=== PATIENT | female | born 1990 | race Caucasian/White ===

== ENCOUNTER 2022-07-07 18:46 | Inpatient (IN) ==
[2022-07-07] MEDS ORDERED: SODIUM CHLORIDE 0.9% 1000ML 2,000 ML IV ONE (19:18)
[2022-07-07] MEDS ORDERED: KETOROLAC TROMETHAMINE 15 MG/ML VIAL IV ONE (19:19)
[2022-07-07] MEDS ORDERED: MoRPHine SULFATE 4 MG/ML 1 ML CARP\\VIAL IV STA ×2 (19:19→22:29)
--- NOTE | 2022-07-07 19:23 | Emergency Department Note ---
Impression & Plan Renal colic, Abdominal pain, Ovarian cyst, Hydronephrosis ED Provider Note NAME: JASWANT GILMORE AGE: 31 SEX: F : 1990 ARRIVES VIA: Walk-In INFORMANT: Patient ED PROVIDER(S): Riley Rodriguez DO CHIEF COMPLAINT: abdominal pain HPI: Patient is a 31-year-old female who presents ER for right lower quadrant abdominal pain. She had a child about 5 years ago. Since that she has been having chronic pain in her belly. This pain in the right lower quadrant has been present since Monday. She was seen at outside facility and had imaging and was diagnosed with an ovarian cyst. She notes that the symptoms have been waxing and waning. They worsened again today. She was also found to have a 9 mm stone in her right kidney. Denies any headache or change in vision. No chest pain or shortness of breath. She does admit to some urgency and frequency but no pain. Last menstrual period was mid May. PAST MEDICAL HISTORY:See Below PAST SURGICAL HISTORY:See Below FAMILY HISTORY:See Below SOCIAL HISTORY:See Below HOME MEDICATIONS:See Below ALLERGIES:See Below VITALS:See Below PHYSICAL EXAMINATION: GENERAL: Sitting up in bed, alert, moderate distress holding right lower quadrant EYE EXAM: EOM's grossly intact. OROPHARYNX: mucous membranes are moist NECK: supple, no nuchal rigidity, no adenopathy, non-tender LUNGS: Clear to auscultation. Normal chest wall mechanics HEART: no murmurs, S1 normal and S2 normal ABDOMEN: abdomen soft, non-tender, normo-active bowel sounds, no masses, no r ebound or guarding. BACK: Back is symmetrical on inspection and there is no deformity, no midline t enderness, no CVA tenderness. SKIN: no rashes and no bruising UPPER EXTREMITIES: upper extremities are grossly normal. LOWER EXTREMITIES: No pitting edema. NEURO EXAM: Normal sensorium, cranial nerves II-XII grossly intact, normal speech, no gross weakness of arms, no gross weakness of legs. No drift. Finger to nose intact. Gross sensation intact. MEDICAL DECISION MAKING: Patient is a 29-year-old female who presents ER for above-stated complaint. IV was established blood work was obtained. Labs show no significant leukocytosis or anemia. BMP along LFTs bilirubin and lipase is unremarkable. UA was clean. COVID-negative. She was given IV fluids, multiple doses of narcotics and antiemetics. She still had persistent vomiting. CT confirmed a 7 mm distal ureteral stone. Discussed with Aravind from urology and Dr. Rand from the hospital service for further observation and monitoring. OBSERVATION: The patient was placed in observation status at 7PM. Abdominal pain with renal colic. During the time in observation, the patient was frequently reassessed and received CT which shows renal stone. On Final reassessment the patient patient was given fluids, recurrent dose of pain medications and antiemetics and the patient will be admitted at this time. A total observation time of 5 hours at 12 AM Triage Nursing notes reviewed. Limited review of prior medical records performed Vital Signs: reviewed and remarkable for no significant abnormalities Differential diagnosis: Differential diagnoses includes but is not limited to gastritis, peptic ulcer disease, GERD, gallbladder disease, pancreatitis, small bowel obstruction, appendicitis, diverticulitis, hernia, urinary tract infection, torsion, /ectopic (if female), perforation, trauma, infectious. ER treatment provided: See below Diagnostics interpreted by me include EKG and cardiac monitoring as listed below: -Cardiac Monitoring: An order was placed for continuous cardiac monitoring. The monitor shows a rate of 70 with sinus rhythm. -ECG: none -Laboratory studies:Interpreted by me as stated above in MDM and shown below. Imaging studies: Xrays: As interpreted by me:none CTs show: CT shows no bowel obstruction per my read Consultation(s): As described in MDM Procedures:none Critical Care: None Past Med/Surg History Medical History (Updated 07/08/22 @ 00:02 by Cesar Greenfield PA-C) Cardiac murmur Lipoma REMOVAL LEG-BENIGN MVP (mitral valve prolapse) NO PREMED WITH DENTAL-HAD EKG/ECHO [facility]-PT WAS TOLD "NO NEED FOR CONCERN' Nausea and vomiting after administration of anesthetic agent AND GROGGY Surgical History H/O eye surgery PRK BILAT History of section History of tooth extraction WISDOM TEETH Hx of breast implants, bilateral Family History Grandmother (Maternal) Family history of diabetes mellitus Family hx of colon cancer Social History Smoking Status: Never smoker Second Hand Exposure: No; Do You Dip or Chew Tobacco: No; Hx Alcohol Use: Yes Alcohol type: beer and wine Hx Substance Use: No Preferred Language: Tajik Communication Ability: Effective Collection Systems Administrator Required: No Beliefs That Will Affect Care: None Current Living Situation: Spouse and Family Feels Safe at Home: Yes Assistive Devices: None Allergies Allergies Allergy/AdvReac Type Severity Reaction Status Date / Time No Known Allergies Allergy Verified 07/07/22 19:35 Home Meds Home Medications Medication Instructions Recorded Confirmed acetaminophen 500 mg tablet 1,000 mg PO DIRECTED PRN Pain 12/04/18 07/07/22 (Tylenol Extra Strength) doxycycline hyclate 50 mg capsule 50 mg PO DAILY 07/01/22 07/07/22 tretinoin 0.05 % topical gel 1 applic topical WK 07/01/22 07/07/22 ibuprofen 800 mg tablet 800 mg PO TID PRN Pain 07/07/22 07/07/22 Previous Rx's Medication Instructions Recorded ondansetron HCl 4 mg tablet 4 mg PO Q8H PRN nausea and 07/01/22 vomiting #20 tabs ondansetron 4 mg disintegrating 4 mg PO Q8H PRN nausea and 07/07/22 tablet vomiting 5 days #15 tabs oxycodone 5 mg tablet 5 mg PO Q6H PRN pain #14 tabs 07/07/22 tamsulosin 0.4 mg capsule (Flomax) 0.4 mg PO DAILY #10 caps 07/07/22 Results & Data (ED) Vital Signs Vital Signs - 24 hr 07/07/22 19:03 07/07/22 18:46 07/07/22 19:29 Temperature 36.9 C Temperature Source Temporal Artery Scan Pulse Rate 63 63 Pulse Rate from SpO2 Sensor Pulse Rhythm Respiratory Rate 18 Respiratory Effort / Characteristics Non-Labored Spontaneous Non-Labored Spontaneous Respiratory Depth Normal Blood Pressure 125/89 Blood Pressure Mean 101 Blood Pressure Position Sitting Pulse Oximetry 100 Oxygen Delivery Method Room Air Sepsis Recent Fever Within 48 Hours No Sepsis New/Unexplained Change in Mental Status No Sepsis Action Taken by Nursing No Action Required 07/07/22 19:07 07/07/22 19:27 07/07/22 19:30 Temperature Temperature Source Pulse Rate 64 63 64 Pulse Rate from SpO2 Sensor Pulse Rhythm Regular Respiratory Rate 17 16 24 Respiratory Effort / Characteristics Respiratory Depth Blood Pressure Blood Pressure Mean Blood Pressure Position Pulse Oximetry 100 Oxygen Delivery Method Room Air Sepsis Recent Fever Within 48 Hours Sepsis New/Unexplained Change in Mental Status Sepsis Action Taken by Nursing 07/07/22 19:50 07/07/22 19:52 07/07/22 20:00 Temperature Temperature Source Pulse Rate 65 67 65 Pulse Rate from SpO2 Sensor 65 Pulse Rhythm Respiratory Rate 18 19 16 Respiratory Effort / Characteristics Respiratory Depth Blood Pressure 120/86 120/86 Blood Pressure Mean 97 97 Blood Pressure Position Pulse Oximetry 99 Oxygen Delivery Method Sepsis Recent Fever Within 48 Hours Sepsis New/Unexplained Change in Mental Status Sepsis Action Taken by Nursing 07/07/22 20:10 07/07/22 20:20 07/07/22 20:30 Temperature Temperature Source Pulse Rate 69 63 66 Pulse Rate from SpO2 Sensor 70 63 65 Pulse Rhythm Respiratory Rate 16 14 17 Respiratory Effort / Characteristics Respiratory Depth Blood Pressure Blood Pressure Mean Blood Pressure Position Pulse Oximetry 96 99 98 Oxygen Delivery Method Sepsis Recent Fever Within 48 Hours Sepsis New/Unexplained Change in Mental Status Sepsis Action Taken by Nursing 07/07/22 20:40 07/07/22 20:50 07/07/22 21:15 Temperature Temperature Source Pulse Rate 65 69 78 Pulse Rate from SpO2 Sensor 66 72 Pulse Rhythm Respiratory Rate 17 16 14 Respiratory Effort / Characteristics Respiratory Depth Blood Pressure Blood Pressure Mean Blood Pressure Position Pulse Oximetry 98 98 Oxygen Delivery Method Sepsis Recent Fever Within 48 Hours Sepsis New/Unexplained Change in Mental Status Sepsis Action Taken by Nursing 07/07/22 21:20 07/07/22 21:27 07/07/22 21:30 Temperature Temperature Source Pulse Rate 66 75 67 Pulse Rate from SpO2 Sensor 65 75 67 Pulse Rhythm Respiratory Rate 14 16 15 Respiratory Effort / Characteristics Respiratory Depth Blood Pressure 130/81 104/62 Blood Pressure Mean 97 76 Blood Pressure Position Pulse Oximetry 96 95 99 Oxygen Delivery Method Sepsis Recent Fever Within 48 Hours Sepsis New/Unexplained Change in Mental Status Sepsis Action Taken by Nursing 07/07/22 21:40 07/07/22 21:50 07/07/22 22:38 Temperature Temperature Source Pulse Rate 66 94 H Pulse Rate from SpO2 Sensor 65 83 Pulse Rhythm Respiratory Rate 13 17 Respiratory Effort / Characteristics Respiratory Depth Blood Pressure Blood Pressure Mean Blood Pressure Position Pulse Oximetry 98 96 Oxygen Delivery Method Sepsis Recent Fever Within 48 Hours Sepsis New/Unexplained Change in Mental Status Sepsis Action Taken by Nursing 07/07/22 22:40 07/07/22 22:50 07/07/22 22:51 Temperature Temperature Source Pulse Rate 74 Pulse Rate from SpO2 Sensor 68 76 77 Pulse Rhythm Respiratory Rate 14 Respiratory Effort / Characteristics Respiratory Depth Blood Pressure 115/78 Blood Pressure Mean 90 Blood Pressure Position Pulse Oximetry 95 96 96 Oxygen Delivery Method Sepsis Recent Fever Within 48 Hours Sepsis New/Unexplained Change in Mental Status Sepsis Action Taken by Nursing 07/07/22 23:00 07/07/22 23:10 07/07/22 23:20 Temperature Temperature Source Pulse Rate 77 73 65 Pulse Rate from SpO2 Sensor 74 73 63 Pulse Rhythm Respiratory Rate 14 18 12 Respiratory Effort / Characteristics Respiratory Depth Blood Pressure 123/83 Blood Pressure Mean 96 Blood Pressure Position Pulse Oximetry 99 97 94 Oxygen Delivery Method Sepsis Recent Fever Within 48 Hours Sepsis New/Unexplained Change in Mental Status Sepsis Action Taken by Nursing 07/07/22 23:30 07/07/22 23:40 07/07/22 23:50 Temperature Temperature Source Pulse Rate 68 62 63 Pulse Rate from SpO2 Sensor 68 62 62 Pulse Rhythm Respiratory Rate 15 16 13 Respiratory Effort / Characteristics Respiratory Depth Blood Pressure 117/81 Blood Pressure Mean 93 Blood Pressure Position Pulse Oximetry 96 95 96 Oxygen Delivery Method Sepsis Recent Fever Within 48 Hours Sepsis New/Unexplained Change in Mental Status Sepsis Action Taken by Nursing 07/08/22 00:00 07/08/22 00:10 07/08/22 00:20 Temperature Temperature Source Pulse Rate 76 90 61 Pulse Rate from SpO2 Sensor 67 86 63 Pulse Rhythm Respiratory Rate 15 15 16 Respiratory Effort / Characteristics Respiratory Depth Blood Pressure 111/73 Blood Pressure Mean 85 Blood Pressure Position Pulse Oximetry 96 99 97 Oxygen Delivery Method Sepsis Recent Fever Within 48 Hours Sepsis New/Unexplained Change in Mental Status Sepsis Action Taken by Nursing Laboratory Data 07/07/22 19:25 07/07/22 19:25 Lab Results 07/07/22 07/07/22 07/07/22 Range/Units 19:07 19:25 19:25 WBC 9.19 (4.8-10.8) K/ul RBC 4.37 (4.20-5.40) M/uL Hgb 14.0 (12.0-16.0) g/dl Hct 38.0 (37.0-47.0) % MCV 87.0 (80.0-100.0) fL MCH 32.0 (25.0-34.0) pg MCHC 36.8 H (32.0-36.0) g/dL RDW Std Deviation 39.8 (36.4-46.3) fL RDW Coeff of Jenae 12.4 (11.5-14.5) % Plt Count 313 (130-400) K/uL MPV 10.0 (9.4-12.4) fL Immature Gran % (Auto) 0.3 % Neut % (Auto) 67.4 % Lymph % (Auto) 21.8 % Hand % (Auto) 9.0 % Eos % (Auto) 1.3 % Baso % (Auto) 0.2 % Neut # (Auto) 6.19 (1.40-6.50) K/uL Lymph # (Auto) 2.00 (1.2-3.4) K/uL Hand # (Auto) 0.83 H (0.11-0.59) K/uL Eos # (Auto) 0.12 (0-0.50) K/uL Baso # (Auto) 0.02 (0-0.2) K/uL Immature Gran # (Auto) 0.03 (0.01-0.20) K/uL Sodium 138 (136-145) mmol/L Potassium 3.7 (3.5-5.1) mmol/L Chloride 106 (98-107) mmol/L Carbon Dioxide 25 (21-32) mmol/L Anion Gap 7 (3-11) BUN 18 (6-23) mg/dl Creatinine 1.36 H (0.6-1.2) mg/dl Est Cr Clr Drug Dosing 61.3 ml/min Est GFR ( Amer) 59.5 ml/min Est GFR (Non-Af Amer) 51.4 ml/min BUN/Creatinine Ratio 13.2 (10-20) Glucose 87 (70-99(Fasting)) mg/dl Calcium 9.4 (8.6-10.3) mg/dl Total Bilirubin 0.5 (0.2-1.0) mg/dl AST 13 (13-39) U/L ALT 10 (7-52) U/L Alkaline Phosphatase 73 (34-104) U/L Total Protein 7.2 (6.0-8.3) gm/dl Albumin 4.4 (3.4-5.0) gm/dl Globulin 2.8 (2.5-4.0) gm/dl Albumin/Globulin Ratio 1.6 (0.9-2) Lipase 14 (11-82) U/L Urine Color Urine Appearance (Clear) Urine pH (4.5-7.5) Ur Specific [place] (1.000-1.030) Urine Protein (Negative) Urine Glucose (UA) (Negative) Urine Ketones (Negative) Urine Blood (Negative) Urine Nitrite (Negative) Urine Bilirubin (Negative) Urine Urobilinogen (Negative) Ur Leukocyte Esterase (Negative) Urine WBC (Auto) (0-5) /hpf Urine RBC (Auto) (0-4) /hpf U Hyaline Cast (Auto) (0-5) /lpf U Epithel Cells (Auto) (0-5) /lpf Urine Bacteria (Auto) (Negative) POC Ur Test NEG (NEG) SARS-CoV-2, RNA, NAAT (NEGATIVE) 07/07/22 07/07/22 07/07/22 Range/Units 19:25 22:00 22:38 WBC (4.8-10.8) K/ul RBC (4.20-5.40) M/uL Hgb (12.0-16.0) g/dl Hct (37.0-47.0) % MCV (80.0-100.0) fL MCH (25.0-34.0) pg MCHC (32.0-36.0) g/dL RDW Std Deviation (36.4-46.3) fL RDW Coeff of Jenae (11.5-14.5) % Plt Count (130-400) K/uL MPV (9.4-12.4) fL Immature Gran % (Auto) % Neut % (Auto) % Lymph % (Auto) % Hand % (Auto) % Eos % (Auto) % Baso % (Auto) % Neut # (Auto) (1.40-6.50) K/uL Lymph # (Auto) (1.2-3.4) K/uL Hand # (Auto) (0.11-0.59) K/uL Eos # (Auto) (0-0.50) K/uL Baso # (Auto) (0-0.2) K/uL Immature Gran # (Auto) (0.01-0.20) K/uL Sodium (136-145) mmol/L Potassium (3.5-5.1) mmol/L Chloride (98-107) mmol/L Carbon Dioxide (21-32) mmol/L Anion Gap (3-11) BUN (6-23) mg/dl Creatinine (0.6-1.2) mg/dl Est Cr Clr Drug Dosing ml/min Est GFR ( Amer) ml/min Est GFR (Non-Af Amer) ml/min BUN/Creatinine Ratio (10-20) Glucose (70-99(Fasting)) mg/dl Calcium (8.6-10.3) mg/dl Total Bilirubin (0.2-1.0) mg/dl AST (13-39) U/L ALT (7-52) U/L Alkaline Phosphatase (34-104) U/L Total Protein (6.0-8.3) gm/dl Albumin (3.4-5.0) gm/dl Globulin (2.5-4.0) gm/dl Albumin/Globulin Ratio (0.9-2) Lipase (11-82) U/L Urine Color Yellow Yellow Urine Appearance Turbid A Clear (Clear) Urine pH 8.5 H 7.0 (4.5-7.5) Ur Specific [place] 1.019 1.040 H (1.000-1.030) Urine Protein Negative Negative (Negative) Urine Glucose (UA) Negative Negative (Negative) Urine Ketones Negative 1+ H (Negative) Urine Blood 2+ H Trace H (Negative) Urine Nitrite Negative Negative (Negative) Urine Bilirubin Negative Negative (Negative) Urine Urobilinogen Negative Negative (Negative) Ur Leukocyte Esterase Trace H Negative (Negative) Urine WBC (Auto) 1-5 1-5 (0-5) /hpf Urine RBC (Auto) >30 H 0-4 (0-4) /hpf U Hyaline Cast (Auto) 0 0 (0-5) /lpf U Epithel Cells (Auto) >30 H 0-5 (0-5) /lpf Urine Bacteria (Auto) 1+ H Negative (Negative) POC Ur Test (NEG) SARS-CoV-2, RNA, NAAT NEGATIVE (NEGATIVE) Administered Medications Discontinued Medications Sodium Chloride (Nss 1000ml) 2,000 mls @ 999 mls/hr IV .Q2H1M ONE Stop: 07/07/22 21:18 Last Infusion: 07/07/22 21:41 Dose: 0 mls/hr Documented By: Admin: 07/07/22 19:42 Dose: 999 mls/hr Documented By: ISH Ioversol (Optiray 320 100ml) 81 ml IV ONCE ONE Stop: 07/07/22 21:07 Last Admin: 07/07/22 21:07 Dose: 81 ml Documented By: MIRLANDE Ketorolac Tromethamine (Ketorolac Tromethamine 15 Mg/Ml Vial) 15 mg IV NOW ONE Stop: 07/07/22 19:20 Last Admin: 07/07/22 19:42 Dose: 15 mg Documented By: ISH Metoclopramide HCl (Metoclopramide Hcl Inj 5 Mg/Ml 2 Ml Vial) 10 mg IV NOW STA Stop: 07/07/22 21:18 Last Admin: 07/07/22 21:24 Dose: 10 mg Documented By: ISH Morphine Sulfate (Morphine Sulfate 4 Mg/Ml 1 Ml Carp\\Vial) 4 mg IV NOW STA Stop: 07/07/22 19:20 Last Admin: 07/07/22 19:48 Dose: 4 mg Documented By: ISH Morphine Sulfate (Morphine Sulfate 4 Mg/Ml 1 Ml Carp\\Vial) 4 mg IV NOW STA Stop: 07/07/22 22:30 Last Admin: 07/07/22 22:34 Dose: 4 mg Documented By: TIA Ondansetron HCl (Ondansetron Inj 2 Mg/Ml 2 Ml Vial) 4 mg IV NOW STA Stop: 07/07/22 19:46 Last Admin: 07/07/22 19:48 Dose: 4 mg Documented By: ISH Ondansetron HCl (Ondansetron Inj 2 Mg/Ml 2 Ml Vial) 4 mg IV NOW STA Stop: 07/07/22 22:31 Last Admin: 07/07/22 22:34 Dose: 4 mg Documented By: TIA Oxycodone HCl (Oxycodone Ir Home Pack) 1 each PO UD ONE Stop: 07/07/22 22:19 Last Admin: 07/07/22 22:49 Dose: Not Given Documented By: ISH Imaging Data Radiologist's Impression: Abdomen/Pelvis CT 07/07/22 19:19 Exam(s): CT ABDOMEN + PELVIS With Contrast IV Amt: 81 ml optiray 320 EXAM: CT Abdomen and Pelvis With Intravenous Contrast CLINICAL HISTORY: rlq abd pain. TECHNIQUE: Axial computed tomography images of the abdomen and pelvis with intravenous contrast. CTDI is 15.71 mGy and DLP is 782.57 mGy-cm. Automated exposure control was utilized for the study. A dose lowering technique was utilized adhering to the principles of ALARA. CONTRAST: Patient received 81 ml optiray 320 of IV contrast COMPARISON: CT abdomen and pelvis with contrast dated 05/20/2019 FINDINGS: Lung bases: Unremarkable. No mass. No consolidation. ABDOMEN: Liver: Unremarkable. No mass. Gallbladder and bile ducts: Unremarkable. No calcified stones. No ductal dilation. Pancreas: Unremarkable. No mass. No ductal dilation. Spleen: Unremarkable. No splenomegaly. Adrenals: Unremarkable. No mass. Kidneys and ureters: A 7.6 mm distal right ureteral stone is noted in the right UVJ with proximal mild to moderate right hydroureteronephrosis. There is minimal perinephric and periureteral fat stranding identified. The left kidney is unremarkable without obstructive nephrolithiasis or hydronephrosis. Right kidney demonstrates somewhat diminished relative enhancement compared to the left kidney. Stomach and bowel: Unremarkable. No obstruction. No mucosal thickening. PELVIS: Appendix: A normal caliber appendix is noted extending inferiorly from the cecum in the anterior pelvis. Bladder: Unremarkable. No mass. Reproductive: There are follicular changes in the right ovary/adnexa measuring 2.1 x 2.2 and 2.5 x 2.3 cm. The uterus is unremarkable. The left adnexa is unremarkable. ABDOMEN and PELVIS: Intraperitoneal space: Unremarkable. No free air. No significant fluid collection. Bones/joints: Posterior pedicle screws and laminar clips are noted at L5 level, stable from the previous examination. There is a grade 1 anterolisthesis of L5 on S1. No acute osseous abnormality. No dislocation. Soft tissues: Unremarkable. Vasculature: Unremarkable. No abdominal aortic aneurysm. Lymph nodes: Unremarkable. No enlarged lymph nodes. IMPRESSION: A 7.6 mm distal right ureteral stone is noted in the right UVJ with proximal mild to moderate right hydroureteronephrosis. There is minimal perinephric and periureteral fat stranding identified. Electronically signed by: Raul Plunkett MD 07/07/22 21:28 PM Discharge Plan Visit Data Chief Complaint: Abdominal Pain Stated Complaint: LOWER RIGHT ABDOMINAL PAIN, VOMITING ED Provider: Riley Rodriguez Discharge Problem: Renal colic, Abdominal pain, Ovarian cyst, Hydronephrosis Discharge Instructions Krames/Other Patient Handouts: ED Kidney Stone w/ Colic Activity Restrictions/Additional Instructions: Please follow up with your primary care doctor or if you are a student, [facility] with in the next 24 hours. You were found to have a kidney stone. This is a stone that was made in your kidneys and is currently in your ureter. Once it gets into your bladder you will no longer have any pain and will eventually urinate this out. Any worsening of your symptoms, please return to the ED immediately. This includes any fevers greater than 100.4, worsening pain, chest pain, shortness breath, persistent nausea, vomiting, unable to eat or drink, or any other concerning signs or symptoms from your standpoint. You were given medications during this visit that will inhibit your ability to drive, operate machinery and work. Please do NOT drive, operate machinery or work for the next 12hrs. You were also given a prescription for a narcotic. While taking this medication you should also not drive, operate machinery and or work. You were found to have a blood pressure greater than 120 systolic over 90 d iastolic. Due to the new Medicare guidelines, we are now recommending that you follow up with your primary care doctor in regards to this elevated blood pressure. Please follow up with urology and call them first thing when you leave here between the hours of 8am and 5pm to schedule an appointment. Please inform them that you were seen and evaluated in the ER and need follow-up for your kidney stone. Forms Stand Alone Forms: My [facility] Prescriptions Prescriptions: New tamsulosin [Flomax] 0.4 mg capsule 0.4 mg PO DAILY Qty: 10 0RF ondansetron 4 mg tablet,disintegrating 4 mg PO Q8H PRN (Reason: nausea and vomiting) 5 Days Qty: 15 0RF oxycodone 5 mg tablet 5 mg PO Q6H PRN (Reason: pain) Qty: 14 0RF No Action acetaminophen [Tylenol Extra Strength] 500 mg Tablet 1,000 mg PO DIRECTED PRN (Reason: Pain) doxycycline hyclate 50 mg capsule 50 mg PO DAILY Patient Comments: she took this morning but threw it back up. tretinoin 0.05 % gel 1 applic TOPICAL [facility] Rx Instructions: MONDAYS ondansetron HCl 4 mg tablet 4 mg PO Q8H PRN (Reason: nausea and vomiting) Qty: 20 0RF ibuprofen 800 mg tablet 800 mg PO TID PRN (Reason: Pain) Referrals Referrals: Delilah Snowden MD [Primary Care Provider] -
[2022-07-07] MEDS ORDERED: ONDANSETRON INJ 2 MG/ML 2 ML VIAL IV STA ×2 (19:45→22:30)
[2022-07-07 19:59] LABS: Basophils # (auto) 0.02 K/uL (0-0.2); Basophils % (auto) 0.2 %; Eosinophils # (auto) 0.12 K/uL (0-0.50); Eosinophils % (auto) 1.3 %; Immature Granulocytes # (auto) 0.03 K/uL (0.01-0.20); Immature Granulocytes % (auto) 0.3 %; Lymphocytes % (auto) 21.8 %; Mean Corpuscular Hgb Conc 36.8 g/dL (32.0-36.0); Monocytes # (auto) 0.83 K/uL (0.11-0.59); Neutrophils # (auto) 6.19 K/uL (1.40-6.50); Neutrophils % (auto) 67.4 %; Platelet Count 313 K/uL (130-400); RDW Coefficient of Variation 12.4 % (11.5-14.5); RDW Standard Deviation 39.8 fL (36.4-46.3); Red Blood Count 4.37 M/uL (4.20-5.40); White Blood Count 9.19 K/ul (4.8-10.8)
[2022-07-07 20:00] LABS: Appearance Urine Turbid (Clear); Bacteria Urine Automated 1+ (Negative); Bilirubin Urine Negative (Negative); Blood Urine 2+ (Negative); Cast Urine Automated 0 /lpf (0-5); Color Urine Yellow; Epithelial Cell Urine Auto >30 /lpf (0-5); Glucose Urine UA Negative (Negative); Ketones Urine Negative (Negative); Leukocyte Esterase Urine Trace (Negative); Nitrite Urine Negative (Negative); Protein Urine Negative (Negative); RBC Urine Automated >30 /hpf (0-4); Specific Gravity Urine 1.019 (1.000-1.030); Urobilinogen Urine Negative (Negative); pH Urine 8.5 (4.5-7.5)
[2022-07-07 20:06] LABS: Albumin Globulin Ratio 1.6 (0.9-2); Albumin Level 4.4 gm/dl (3.4-5.0); BUN Creatinine Ratio 13.2 (10-20); Bilirubin,Total 0.5 mg/dl (0.2-1.0); Calcium 9.4 mg/dl (8.6-10.3); Creatinine Clr Calc Pharmacy 61.3 ml/min; Est GFR (African American) 59.5 ml/min; Est GFR (Non-African American) 51.4 ml/min; Globulin 2.8 gm/dl (2.5-4.0); Potassium 3.7 mmol/L (3.5-5.1); Total Protein 7.2 gm/dl (6.0-8.3)
[2022-07-07] MEDS ORDERED: OPTIRAY 320 100ml IV ONE (21:06)
[2022-07-07] MEDS ORDERED: METOCLOPRAMIDE HCL INJ 5 MG/ML 2 ML VIAL IV STA (21:17)
--- NOTE | 2022-07-07 21:29 | CT Scan Report ---
Exam(s): CT ABDOMEN + PELVIS With Contrast IV Amt: 81 ml optiray 320 EXAM: CT Abdomen and Pelvis With Intravenous Contrast CLINICAL HISTORY: rlq abd pain. TECHNIQUE: Axial computed tomography images of the abdomen and pelvis with intravenous contrast. CTDI is 15.71 mGy and DLP is 782.57 mGy-cm. Automated exposure control was utilized for the study. A dose lowering technique was utilized adhering to the principles of ALARA. CONTRAST: Patient received 81 ml optiray 320 of IV contrast COMPARISON: CT abdomen and pelvis with contrast dated 05/20/2019 FINDINGS: Lung bases: Unremarkable. No mass. No consolidation. ABDOMEN: Liver: Unremarkable. No mass. Gallbladder and bile ducts: Unremarkable. No calcified stones. No ductal dilation. Pancreas: Unremarkable. No mass. No ductal dilation. Spleen: Unremarkable. No splenomegaly. Adrenals: Unremarkable. No mass. Kidneys and ureters: A 7.6 mm distal right ureteral stone is noted in the right UVJ with proximal mild to moderate right hydroureteronephrosis. There is minimal perinephric and periureteral fat stranding identified. The left kidney is unremarkable without obstructive nephrolithiasis or hydronephrosis. Right kidney demonstrates somewhat diminished relative enhancement compared to the left kidney. Stomach and bowel: Unremarkable. No obstruction. No mucosal thickening. PELVIS: Appendix: A normal caliber appendix is noted extending inferiorly from the cecum in the anterior pelvis. Bladder: Unremarkable. No mass. Reproductive: There are follicular changes in the right ovary/adnexa measuring 2.1 x 2.2 and 2.5 x 2.3 cm. The uterus is unremarkable. The left adnexa is unremarkable. ABDOMEN and PELVIS: Intraperitoneal space: Unremarkable. No free air. No significant fluid collection. Bones/joints: Posterior pedicle screws and laminar clips are noted at L5 level, stable from the previous examination. There is a grade 1 anterolisthesis of L5 on S1. No acute osseous abnormality. No dislocation. Soft tissues: Unremarkable. Vasculature: Unremarkable. No abdominal aortic aneurysm. Lymph nodes: Unremarkable. No enlarged lymph nodes. IMPRESSION: A 7.6 mm distal right ureteral stone is noted in the right UVJ with proximal mild to moderate right hydroureteronephrosis. There is minimal perinephric and periureteral fat stranding identified. Electronically signed by: Raul Plunkett MD 07/07/22 21:28 PM
[2022-07-07 22:14] LABS: Appearance Urine Clear (Clear); Bacteria Urine Automated Negative (Negative); Bilirubin Urine Negative (Negative); Blood Urine Trace (Negative); Cast Urine Automated 0 /lpf (0-5); Color Urine Yellow; Epithelial Cell Urine Auto 0-5 /lpf (0-5); Glucose Urine UA Negative (Negative); Ketones Urine 1+ (Negative); Leukocyte Esterase Urine Negative (Negative); Nitrite Urine Negative (Negative); Protein Urine Negative (Negative); RBC Urine Automated 0-4 /hpf (0-4); Urobilinogen Urine Negative (Negative)
[2022-07-07] MEDS ORDERED: oxyCODONE IR HOME PACK PO ONE (22:18)
[2022-07-07] MEDS ORDERED: oxyCODONE HCL IR 5 MG TAB (IMMEDIATE RELEASE) PO PRN (22:49)
--- NOTE | 2022-07-07 23:21 | Urology Consultation ---
Date of Consultation July 07, 2022 Assessment & Plan (1) Nephrolithiasis: I discussed with the treating emergency room physician the patient is being made on the hospitalist service. From a urologic standpoint we recommend the following: Provide analgesics Provide antiemetics Avoid nephrotoxic medications as the patient has had a slight increase in her creatinine (I suspect the elevation of her creatinine is at least in part due to poor oral intake and dehydration as she has been having nausea and vomiting with poor oral intake) Follow serial labs Recommend straining all urineif any kidney stones are passed they can be sent for proper analysis Recommend initiating Flomax for expulsive therapy. I have ordered the first dose of this medication to be given in the emergency department. Patient does not have signs of urinary tract infection on urinalysis. A urine culture has been sent. If bacterial growth is noted on her urine culture appropriate antibiotics can be initiated Implement n.p.o. status. The patient will be reevaluated in the morning of 07/08/2022 to determine if cystoscopy is required. At the present time the patient is noted to be normotensive without tachycardia or fever. She does not have leukocytosis. Her urinalysis not taken of infection so I do not feel an emergent urologic procedure is required at this time. Additional recommendations be forthcoming based on her clinical course as it unfolds Supervising Physician Co-Signing Physician Notes Discussed patient with ALENA. Agree with plan. Keep NPO, re-evaluate in the morning for possible stent placement. History of Present Illness Reason for Consultation: Nephrolithiasis History of Present Illness This is a 31-year-old female who presented to [facility] emergency department secondary to abdominal pain. Patient notes that she has been having issues with abdominal pain for approximately 1.5 weeks. Patient says that she was seen by one of her primary care team members and was sent to [facility] on 06/28/2022 as the patient was experiencing some right lower quadrant abdominal pain and they wanted to ensure patient was not suffering from appendicitis. While at [facility] the patient had a CT scan of the abdomen pelvisthe patient was able to pull up her electronic medical record and I reviewed the report of the study. This CT scan showed the patient had a 9 x 6 mm right-sided kidney stone with no hydronephrosis. Her appendix was noted to be normal on the study. In addition the patient has had outpatient laboratories where her creatinine was noted to be normal at 0.7. Patient notes that she did not have any outpatient follow-up arranged for the noted kidney stone. The patient presented to [facility] emergency department secondary to ongoing pain. Patient notes that she does have occasional right flank pain but the pain is primary located in the right lower quadrant of her abdomen. She has had associated nausea and vomiting but specifically denies any fevers or chills. Patient says that she is not experiencing any dysuria or hematuria. She denies any palliative or provocative factors to her pain. The patient does report that prior to her current presentation she has not had any known history of nephrolithiasis. The patient notes that her most recent solid oral intake was at approximately 3:00 PM on 07/07/2022. She does note that she has been drinking some water since arrival to the emergency department. The patient notes that she leads an active lifestyle and does not get chest pain or shortness of breath with her activities of daily living. Since arrival to the hospital the patient has had labs and imaging which I independently reviewed. A chest x-ray did not show any evidence of pneumonia. The patient did have a CT scan of the abdomen pelvis that showed she had a 7.6 mm distal right ureteral stone at the ureterovesical junction. The patient was noted to have moderate right hydroureteronephrosis and minimal perinephric and periureteral fat stranding. Her appendix was noted to be normal on the study. Labs include a CBC her white blood cell count, hemoglobin, hematocrit, and platelet count were normal. Chemistry profile showed sodium, potassium, and BUN were normal. The patient's creatinine was noted to be 1.3. (Review of records show the patient did have a normal creatinine on July 01 of this year. In addition the patient was seen approximately 1.5 weeks ago at [facility] as noted above where her creatinine was noted to be normal). There is no elevation of the patient's LFTs or lipase. Urinalysis was not indicative of infection. A urine test was negative. A COVID test was negative At the time of my interview the patient was resting comfortably in bed and she was in no distress Allergies Allergy/AdvReac Type Severity Reaction Status Date / Time No Known Allergies Allergy Verified 07/07/22 19:35 Home Medications Medication Instructions Recorded Confirmed Type acetaminophen 500 mg tablet 1,000 mg PO DIRECTED PRN Pain 12/04/18 07/07/22 History (Tylenol Extra Strength) doxycycline hyclate 50 mg capsule 50 mg PO DAILY 07/01/22 07/07/22 History tretinoin 0.05 % topical gel 1 applic topical WK 07/01/22 07/07/22 History ibuprofen 800 mg tablet 800 mg PO TID PRN Pain 07/07/22 07/07/22 History ondansetron 4 mg disintegrating 4 mg PO Q8H PRN nausea and 07/07/22 Rx tablet vomiting 5 days #15 tabs oxycodone 5 mg tablet 5 mg PO Q6H PRN pain #14 tabs 07/07/22 Rx tamsulosin 0.4 mg capsule (Flomax) 0.4 mg PO DAILY #10 caps 07/07/22 Rx Patient History Medical History Cardiac murmur Lipoma REMOVAL LEG-BENIGN MVP (mitral valve prolapse) NO PREMED WITH DENTAL-HAD EKG/ECHO [facility]-PT WAS TOLD "NO NEED FOR CONCERN' Nausea and vomiting after administration of anesthetic agent AND GROGGY Surgical History H/O eye surgery PRK BILAT History of section History of tooth extraction WISDOM TEETH Hx of breast implants, bilateral Family History Grandmother (Maternal) Family history of diabetes mellitus Family hx of colon cancer Social History Smoking Status: Never smoker Second Hand Exposure: No; Do You Dip or Chew Tobacco: No; Hx Alcohol Use: Yes Alcohol type: other Hx Substance Use: No Preferred Language: Gibraltarian Communication Ability: Effective Printer Assistant Required: No Beliefs That Will Affect Care: None Current Living Situation: Spouse Feels Safe at Home: Yes Assistive Devices: None Review of Systems Constitutional: no fever and no chills Ear, Nose, Mouth, Throat: no hearing loss Respiratory: no cough and no dyspnea Cardiovascular: no chest pain Gastrointestinal: + abdominal pain, + nausea and + vomiting Genitourinary: as per Subjective / HPI Musculoskeletal: + back pain (Minor right-sided flank pain) Integumentary: no rash Neurologic: no localized weakness Physical Exam Constitutional: WD/WN, vitals as above Eyes: no conjunctival abnormality ENMT: Ears: no hearing impairment and no external ear abnormality Mouth: no oropharynx abnormality Neck: trachea midline Respiratory: normal respiratory effort, lungs clear to auscultation Cardiovascular: Rate/Rhythm: regular rate and regular rhythm Vessels: dorsalis pedis pulses present and radial pulses present Gastrointestinal (Abdomen): Abdomen is soft, nonrigid, nondistended. Bowel sounds are present. There is no rebound tenderness or guarding. Pain was exhibited with palpation of the right lower quadrant. Musculoskeletal: No calf tenderness Skin: no rashes Neurologic: moves all extremities Psychiatric: A+Ox3, euthymic affect Genitourinary: + CVA tenderness (Noted on right side with percussion, no CVA tenderness on left) Results & Data Vital Signs (Past 12 Hours) Vital Signs Temp Pulse Resp BP Pulse Ox O2 Del Method 07/07/22 21:40 66 13 98 07/07/22 21:30 67 15 104/62 99 07/07/22 21:27 75 16 130/81 95 07/07/22 21:20 66 14 96 07/07/22 21:15 78 14 07/07/22 20:50 69 16 98 07/07/22 20:40 65 17 98 07/07/22 20:30 66 17 98 07/07/22 20:20 63 14 99 07/07/22 20:10 69 16 96 07/07/22 20:00 65 16 99 07/07/22 19:52 67 19 120/86 07/07/22 19:50 65 18 120/86 07/07/22 19:30 64 24 07/07/22 19:27 63 16 07/07/22 19:07 64 17 100 Room Air 07/07/22 19:29 63 07/07/22 19:03 36.9 C 63 18 125/89 100 Room Air PG Care Time/CCT Total # of Minutes Spent Total Time Spent with Patient: Total time spent is greater than 50% in coordination of care (as documented) at patient's floor/unit and/or counseling patient: Coding Level of Care Code 48206 IN/OBS CONSULT LVL 5,80M Diagnoses Nephrolithiasis N20.0
[2022-07-08] MEDS ORDERED: TAMSULOSIN HCL 0.4 MG CAP PO ONE (00:05)
[2022-07-08] MEDS ORDERED: PROMETHAZINE HCL 12.5 MG in SODIUM CHLORIDE 0.9% 50 ML IV PRN ×2 (00:21→15:22)
[2022-07-08] MEDS ORDERED: D5W AND LACTATED RINGERS 1,000 ML IV ONE (00:35)
[2022-07-08] MEDS ORDERED: PROMETHAZINE 12.5 MG/50.5 ML BAG IV PRN (00:38)
--- NOTE | 2022-07-08 01:45 | History & Physical Report ---
Date of Service July 08, 2022 Assessment & Plan (1) ARF (acute renal failure): Plan: Secondary to obstructive uropathy/urolithiasis No sepsis for now hx mitral valve prolapse gestational DM cervical dysplasia GMF Analgesia Monitor creatinine response to IVF Urology consult Re: Obstructive uropathy (Patient already seen at the ER by provider who recommends Flomax and n.p.o. status in anticipation of procedural intervention in a.m.) DVT prophylaxis. SCDs Full code Text document was generated using [employer] voice recognition software. It may contain grammatical or spelling errors. Kindly contact undersigned for clarification of any documentation item in question. History of Present Illness Chief Complaint: Worsening right lower quadrant pain Primary Care Provider: Delilah Snowden MD History obtained from patient and records. Medical history significant for mitral valve prolapse, gestational DM, cervical dysplasia. Patient seen at [facility] 10 days ago right lower quadrant pain. Normal appendix and nonobstructing right renal calculus noted on imaging. Right ovarian cyst noted. Pain attributed to right ovarian cyst. Subsequent improved with outpatient oxycodone as needed prescription. Last week, patient seen at the [facility] ER for achy right lower quadrant pain somewhat different from ovarian cyst pain. Pain crossing over. Patient denies hematuria, fever, chills. No chest pain, no SOB. Normal uterus endometrium, few right ovarian cysts with dominant simple cyst measuring 3.2 cm on pelvic ultrasound. Patient abdominal pain attributed to ovarian cyst. Patient returned to ER last night for worsening RLQ pain nausea, vomiting. No chest pain, no SOB No hematuria, fever, chills. 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 Allergies Allergy/AdvReac Type Severity Reaction Status Date / Time No Known Allergies Allergy Verified 07/07/22 19:35 Home Medications Medication Instructions Recorded Confirmed Type acetaminophen 500 mg tablet 1,000 mg PO DIRECTED PRN Pain 12/04/18 07/07/22 History (Tylenol Extra Strength) doxycycline hyclate 50 mg capsule 50 mg PO DAILY 07/01/22 07/07/22 History ondansetron HCl 4 mg tablet 4 mg PO Q8H PRN nausea and 07/01/22 07/07/22 Rx vomiting #20 tabs tretinoin 0.05 % topical gel 1 applic topical WK 07/01/22 07/07/22 History ibuprofen 800 mg tablet 800 mg PO TID PRN Pain 07/07/22 07/07/22 History ondansetron 4 mg disintegrating 4 mg PO Q8H PRN nausea and 07/07/22 Rx tablet vomiting 5 days #15 tabs oxycodone 5 mg tablet 5 mg PO Q6H PRN pain #14 tabs 07/07/22 Rx tamsulosin 0.4 mg capsule (Flomax) 0.4 mg PO DAILY #10 caps 07/07/22 Rx Past Med/Surg History Medical History (Updated 07/08/22 @ 08:41 by Mika Daugherty MD) Cardiac murmur Lipoma REMOVAL LEG-BENIGN MVP (mitral valve prolapse) NO PREMED WITH DENTAL-HAD EKG/ECHO [facility]-PT WAS TOLD "NO NEED FOR CONCERN' Nausea and vomiting after administration of anesthetic agent AND GROGGY Surgical History H/O eye surgery PRK BILAT History of section History of tooth extraction WISDOM TEETH Hx of breast implants, bilateral Family History Grandmother (Maternal) Family history of diabetes mellitus Family hx of colon cancer Social History Smoking Status: Never smoker Second Hand Exposure: No; Do You Dip or Chew Tobacco: No; Hx Alcohol Use: Yes Alcohol type: other Hx Substance Use: No Preferred Language: Vietnamese Communication Ability: Effective 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 Beliefs That Will Affect Care: None Current Living Situation: Spouse Feels Safe at Home: Yes Safety Concerns: Feels Safe At This Time Assistive Devices: None Review of Systems Review of Systems: As per HPI, all other systems reviewed and negative Physical Exam Physical Exam: GENERAL: Comfortable, no respiratory distress SKIN: Normal color, warm HEENT: [place] palpebral conjunctivae, no ptosis, dry buccal mucosa NECK : Supple, no tenderness CHEST : CTA, no tenderness HEART : RRR, no obvious murmurs ABDOMEN: Some distention, right lower quadrant tenderness EXTREMITIES : No LE swelling/tenderness, no other conspicuous deformities noted NEUROLOGIC : Coherent, no facial asymmetry, no other gross focality Results & Data Results & Data Vital Signs (Past 12 Hours) Vital Signs Temp Pulse Resp BP Pulse Ox O2 Del Method 07/08/22 00:20 61 16 97 07/08/22 00:10 90 15 99 07/08/22 00:00 76 15 111/73 96 07/07/22 23:50 63 13 96 07/07/22 23:40 62 16 95 07/07/22 23:30 68 15 117/81 96 07/07/22 23:20 65 12 94 07/07/22 23:10 73 18 97 07/07/22 23:00 77 14 123/83 99 07/07/22 22:51 74 14 115/78 96 07/07/22 22:50 96 07/07/22 22:40 95 07/07/22 22:38 96 07/07/22 21:50 94 H 17 07/07/22 21:40 66 13 98 07/07/22 21:30 67 15 104/62 99 07/07/22 21:27 75 16 130/81 95 07/07/22 21:20 66 14 96 07/07/22 21:15 78 14 07/07/22 20:50 69 16 98 07/07/22 20:40 65 17 98 07/07/22 20:30 66 17 98 07/07/22 20:20 63 14 99 07/07/22 20:10 69 16 96 07/07/22 20:00 65 16 99 07/07/22 19:52 67 19 120/86 07/07/22 19:50 65 18 120/86 07/07/22 19:30 64 24 07/07/22 19:27 63 16 07/07/22 19:07 64 17 100 Room Air 07/07/22 19:29 63 07/07/22 19:03 36.9 C 63 18 125/89 100 Room Air Laboratory Results Laboratory Results WBC 9.19 K/ul (4.8-10.8) 07/07/22 19:25 RBC 4.37 M/uL (4.20-5.40) 07/07/22 19:25 Hgb 14.0 g/dl (12.0-16.0) 07/07/22 19: Hct 38.0 % (37.0-47.0) 07/07/22: MCV 87.0 fL (80.0-100.0) 07/07/22 19: MCH 32.0 pg (25.0-34.0) 07/07/22: MCHC 36.8 g/dL (32.0-36.0) H 07/07/22: RDW Std Deviation 39.8 fL (36.4-46.3) 07/07/22: RDW Coeff of Jenae 12.4 % (11.5-14.5) 07/07/22: Plt Count 313 K/uL (130-400) 07/07/22: MPV 10.0 fL (9.4-12.4) 07/07/22: Immature Gran % (Auto) 0.3 % 07/07/22: Neut % (Auto) 67.4 % 07/07/22: Lymph % (Auto) 21.8 % 07/07/22:25 [place] % (Auto) 9.0 % 07/07/22 19: Eos % (Auto) 1.3 % 07/07/22: Baso % (Auto) 0.2 % 07/07/22: Neut # (Auto) 6.19 K/uL (1.40-6.50) 07/07/22: Lymph # (Auto) 2.00 K/uL (1.2-3.4) 07/07/22: Wetzel # (Auto) 0.83 K/uL (0.11-0.59) H 07/07/22: Eos # (Auto) 0.12 K/uL (0-0.50) 07/07/22: Baso # (Auto) 0.02 K/uL (0-0.2) 07/07/22: Immature Gran # (Auto) 0.03 K/uL (0.01-0.20) 07/07/22 19: Sodium 138 mmol/L (136-145) 07/07/22 19:25 Potassium 3.7 mmol/L (3.5-5.1) 07/07/22 19:25 Chloride 106 mmol/L (98-107) 07/07/22 19:25 Carbon Dioxide 25 mmol/L (21-32) 07/07/22 19:25 Anion Gap 7 (3-11) 07/07/22 19:25 BUN 18 mg/dl (6-23) 07/07/22 19:25 Creatinine 1.36 mg/dl (0.6-1.2) H 07/07/22 19:25 Est Cr Clr Drug Dosing 61.3 ml/min 07/07/22 19:25 Est GFR ( Amer) 59.5 ml/min 07/07/22 19:25 Est GFR (Non-Af Amer) 51.4 ml/min 07/07/22 19:25 BUN/Creatinine Ratio 13.2 (10-20) 07/07/22 19:25 Glucose 87 mg/dl (70-99(Fasting)) 07/07/22 19:25 Calcium 9.4 mg/dl (8.6-10.3) 07/07/22 19:25 Total Bilirubin 0.5 mg/dl (0.2-1.0) 07/07/22 19:25 AST 13 U/L (13-39) 07/07/22 19:25 ALT 10 U/L (7-52) 07/07/22 19:25 Alkaline Phosphatase 73 U/L (34-104) 07/07/22 19:25 Total Protein 7.2 gm/dl (6.0-8.3) 07/07/22 19:25 Albumin 4.4 gm/dl (3.4-5.0) 07/07/22 19:25 Globulin 2.8 gm/dl (2.5-4.0) 07/07/22 19:25 Albumin/Globulin Ratio 1.6 (0.9-2) 07/07/22 19:25 Lipase 14 U/L (11-82) 07/07/22 19:25 Urine Color Yellow 07/07/22 22:00 Urine Appearance Clear (Clear) 07/07/22 22:00 Urine pH 7.0 (4.5-7.5) 07/07/22 22:00 Ur Specific [place] 1.040 (1.000-1.030) H 07/07/22 22:00 Urine Protein Negative (Negative) 07/07/22 22:00 Urine Glucose (UA) Negative (Negative) 07/07/22 22:00 Urine Ketones 1+ (Negative) H 07/07/22 22:00 Urine Blood Trace (Negative) H 07/07/22 22:00 Urine Nitrite Negative (Negative) 07/07/22 22:00 Urine Bilirubin Negative (Negative) 07/07/22 22:00 Urine Urobilinogen Negative (Negative) 07/07/22 22:00 Ur Leukocyte Esterase Negative (Negative) 07/07/22 22:00 Urine WBC (Auto) 1-5 /hpf (0-5) 07/07/22 22:00 Urine RBC (Auto) 0-4 /hpf (0-4) 07/07/22 22:00 U Hyaline Cast (Auto) 0 /lpf (0-5) 07/07/22 22:00 U Epithel Cells (Auto) 0-5 /lpf (0-5) 07/07/22 22:00 Urine Bacteria (Auto) Negative (Negative) 07/07/22 22:00 POC Ur Test NEG (NEG) 07/07/22 19:07 SARS-CoV-2, RNA, NAAT NEGATIVE (NEGATIVE) 07/07/22 22:38 Impressions Abdomen/Pelvis CT 07/07/22 19:19 Exam(s): CT ABDOMEN + PELVIS With Contrast IV Amt: 81 ml optiray 320 EXAM: CT Abdomen and Pelvis With Intravenous Contrast CLINICAL HISTORY: rlq abd pain. TECHNIQUE: Axial computed tomography images of the abdomen and pelvis with intravenous contrast. CTDI is 15.71 mGy and DLP is 782.57 mGy-cm. Automated exposure control was utilized for the study. A dose lowering technique was utilized adhering to the principles of ALARA. CONTRAST: Patient received 81 ml optiray 320 of IV contrast COMPARISON: CT abdomen and pelvis with contrast dated 05/20/2019 FINDINGS: Lung bases: Unremarkable. No mass. No consolidation. ABDOMEN: Liver: Unremarkable. No mass. Gallbladder and bile ducts: Unremarkable. No calcified stones. No ductal dilation. Pancreas: Unremarkable. No mass. No ductal dilation. Spleen: Unremarkable. No splenomegaly. Adrenals: Unremarkable. No mass. Kidneys and ureters: A 7.6 mm distal right ureteral stone is noted in the right UVJ with proximal mild to moderate right hydroureteronephrosis. There is minimal perinephric and periureteral fat stranding identified. The left kidney is unremarkable without obstructive nephrolithiasis or hydronephrosis. Right kidney demonstrates somewhat diminished relative enhancement compared to the left kidney. Stomach and bowel: Unremarkable. No obstruction. No mucosal thickening. PELVIS: Appendix: A normal caliber appendix is noted extending inferiorly from the cecum in the anterior pelvis. Bladder: Unremarkable. No mass. Reproductive: There are follicular changes in the right ovary/adnexa measuring 2.1 x 2.2 and 2.5 x 2.3 cm. The uterus is unremarkable. The left adnexa is unremarkable. ABDOMEN and PELVIS: Intraperitoneal space: Unremarkable. No free air. No significant fluid collection. Bones/joints: Posterior pedicle screws and laminar clips are noted at L5 level, stable from the previous examination. There is a grade 1 anterolisthesis of L5 on S1. No acute osseous abnormality. No dislocation. Soft tissues: Unremarkable. Vasculature: Unremarkable. No abdominal aortic aneurysm. Lymph nodes: Unremarkable. No enlarged lymph nodes. IMPRESSION: A 7.6 mm distal right ureteral stone is noted in the right UVJ with proximal mild to moderate right hydroureteronephrosis. There is minimal perinephric and periureteral fat stranding identified. Electronically signed by: Raul Plunkett MD 07/07/22 21:28 PM Diagnostic Findings Chest x-ray as per my interpretation no congestion
[2022-07-08] MEDS ORDERED: HYDROmorphone INJ 0.5 MG/0.5 ML SYR IV PRN (01:48)
[2022-07-08] MEDS ORDERED: LORazepam 0.5 MG TAB PO PRN (01:49)
[2022-07-08] MEDS: PROMETHAZINE HCL 12.5 MG in SODIUM CHLORIDE 0.9% 50 ML IV PRN ×2 (05:22→12:01)
--- NOTE | 2022-07-08 07:22 | XRay Report ---
XR chest 1V portable HISTORY: 31 years-old Female renal failure acute shortness of breath with renal failure COMPARISON: CT abdomen and pelvis 07/07/2022 TECHNIQUE: AP view of the chest FINDINGS: Cardiomediastinal and hilar silhouettes are within normal limits. Midthoracic dextroscoliosis again n oted. There is no pneumothorax, pleural effusion, airspace consolidation or pulmonary edema. Breast i mplants with nipple jewelry. Bones of the chest appear grossly intact. IMPRESSION: 1. No acute process of the chest. 2. Thoracic dextroscoliosis. ACT 112: Negative or not required by law. The above report was generated using voice recognition software. It may contain grammatical, syntax o r spelling errors. Electronically signed by: Nitin Barcenas M.D. 07/08/2022 7:21 AM
[2022-07-08 08:55] LABS: Basophils # (auto) 0.01 K/uL (0-0.2); Basophils % (auto) 0.1 %; Eosinophils % (auto) 1.3 %; Hematocrit (blood only) 34.1 % (37.0-47.0); Hemoglobin 11.6 g/dl (12.0-16.0); Immature Granulocytes # (auto) 0.02 K/uL (0.01-0.20); Immature Granulocytes % (auto) 0.3 %; Lymphocytes # (auto) 1.65 K/uL (1.2-3.4); Lymphocytes % (auto) 21.6 %; Mean Corpuscular Hemoglobin 30.5 pg (25.0-34.0); Mean Corpuscular Volume 89.7 fL (80.0-100.0); Mean Platelet Volume 10.1 fL (9.4-12.4); Monocytes # (auto) 0.88 K/uL (0.11-0.59); Monocytes % (auto) 11.5 %; Neutrophils # (auto) 4.99 K/uL (1.40-6.50); Neutrophils % (auto) 65.2 %; Platelet Count 242 K/uL (130-400); RDW Coefficient of Variation 12.8 % (11.5-14.5); RDW Standard Deviation 42.1 fL (36.4-46.3); White Blood Count 7.65 K/ul (4.8-10.8)
[2022-07-08 09:13] LABS: BUN Creatinine Ratio 9.9 (10-20); Calcium 7.7 mg/dl (8.6-10.3); Creatinine Clr Calc Pharmacy 64.3 ml/min; Est GFR (African American) 62.3 ml/min; Est GFR (Non-African American) 53.7 ml/min; Potassium 3.8 mmol/L (3.5-5.1)
--- NOTE | 2022-07-08 11:56 | Urology Progress Note ---
Date of Service July 08, 2022 Assessment & Plan (1) Right ureteral calculus: Plan: - Follow-up of right distal ureteral stone. - Afebrile, hemodynamically stable. - Labs reviewed - creatinine 1.31, WBC 7.65, Hbg 11.6. - Urine culture pending. - Discussed options for stone management including surgical intervention with ureteroscopy, laser lithotripsy, and stent placement. - We discussed alternatives including outpatient surgical options with ESWL or ureteroscopy if pain is controlled. - Procedures, success rates, risks, benefits and clinical courses reviewed. - Ureteral stents were discussed as well as post-operative issues and pain management. - Patient would like to proceed with surgical intervention today. - Plan for Cystoscopy, right retrograde pyelogram, right ureteroscopy, laser lithotripsy, and right ureteral stent placement. - Risks and benefits to be reviewed with patient by Dr. Jose. OR notified. - Will cover with IV Ciprofloxacin preoperatively. - Keep NPO for procedure. Admission and Anticipated Discharge Date Admission Date: July 08, 2022 Supervising Physician Co-Signing Physician Notes Agree with above. Distal ureteral calculus. Plan for ureteroscopy, laser lithotripsy, and stent exchange today. I have discussed stone treatment with the patient and she greatly prefers this to stent placement with staged surgery in the future. Subjective Patient seen and examined this AM. She continues to have right flank discomf ort. No nausea or vomiting at present. No fever or chills. She is voiding spontaneously. No dysuria or hematuria. Notes urinary frequency. She is NPO. Review of Systems Constitutional: as per Subjective / HPI Respiratory: no problem reported Cardiovascular: no problem reported Gastrointestinal: as per Subjective / HPI Genitourinary: as per Subjective / HPI Physical Exam Constitutional: well developed and well nourished; no acute distress and not ill appearing Neck: normal visual inspection Respiratory: normal respiratory effort and able to speak in complete sentences; no respiratory distress and no labored breathing Cardiovascular: Extremities: no pedal edema Gastrointestinal (Abdomen): Inspection/Auscultation: abdomen normal to inspection; abdomen not distended Musculoskeletal: Head/Neck/Chest: normocephalic and head atraumatic Skin: no rashes Neurologic: moves all extremities and awake Psychiatric: Orientation: alert and oriented x 3 Results & Data Vital Signs (Past 12 Hours) Vital Signs Temp Pulse Pulse Resp BP BP Pulse Ox 05/12/23 07:18 36.9 C 67 16 110/70 94 07/08/22 02:45 36.8 C 68 14 138/81 100 07/08/22 02:31 07/08/22 02:23 80 16 133/79 07/08/22 02:20 56 L 13 07/08/22 02:10 58 L 13 07/08/22 02:00 59 L 13 07/08/22 01:50 60 14 07/08/22 01:40 68 20 07/08/22 01:30 67 14 07/08/22 01:20 58 L 17 07/08/22 01:10 63 15 07/08/22 01:00 58 L 14 07/08/22 00:50 55 L 12 07/08/22 00:41 78 21 07/08/22 00:30 70 20 111/72 96 07/08/22 00:20 61 16 97 07/08/22 00:10 90 15 99 07/08/22 00:00 76 15 111/73 96 O2 Del Method 07/08/22 07:18 Room Air 07/08/22 02:45 Room Air 07/08/22 02:31 Room Air 07/08/22 02:23 07/08/22 02:20 07/08/22 02:10 07/08/22 02:00 07/08/22 01:50 07/08/22 01:40 07/08/22 01:30 07/08/22 01:20 07/08/22 01:10 07/08/22 01:00 07/08/22 00:50 07/08/22 00:41 07/08/22 00:30 07/08/22 00:20 07/08/22 00:10 07/08/22 00:00 PG Care Time/CCT Total # of Minutes Spent Total Time Spent with Patient: Total time spent is greater than 50% in coordination of care (as documented) at patient's floor/unit and/or counseling patient: Coding Level of Care Code 89146 SUB INP/OBS CARE 1/25MIN Diagnoses Right ureteral calculus N20.1
--- NOTE | 2022-07-08 14:17 | Anesthesiology Consultation ---
Date of Service July 08, 2022 Assessment & Plan Chart Review Chart Review: Acceptable Risk for Surgery and Patient NOT seen in Pre Admission Testing Consults Requested none ASA ASA2 Proposed Anesthesia Anesthesia Type: General History Surgery Operation Date: 07/08/22 07:00 Proposed Procedures p Cystoscopy, Right Retrograde Pyelogram, Right Ureteroscopy, Laser Lithotripsy, Right Stent Placement - Mike Jose MD Height/Weight Height: 5 ft 6 in Weight: 76.204 kg Allergies Allergy/AdvReac Type Severity Reaction Status Date / Time No Known Allergies Allergy Verified 07/07/22 19:35 Medications Home Medications Medication Instructions Recorded Confirmed Last Taken acetaminophen 500 mg tablet 1,000 mg PO DIRECTED PRN Pain 12/04/18 07/07/22 06/30/22 (Tylenol Extra Strength) doxycycline hyclate 50 mg capsule 50 mg PO DAILY 07/01/22 07/07/22 07/07/22 ondansetron HCl 4 mg tablet 4 mg PO Q8H PRN nausea and 07/01/22 07/07/22 Unknown vomiting #20 tabs tretinoin 0.05 % topical gel 1 applic topical WK 07/01/22 07/07/22 07/04/22 ibuprofen 800 mg tablet 800 mg PO TID PRN Pain 07/07/22 07/07/22 Unknown ondansetron 4 mg disintegrating 4 mg PO Q8H PRN nausea and 07/07/22 Unknown tablet vomiting 5 days #15 tabs oxycodone 5 mg tablet 5 mg PO Q6H PRN pain #14 tabs 07/07/22 Unknown tamsulosin 0.4 mg capsule (Flomax) 0.4 mg PO DAILY #10 caps 07/07/22 Unknown Active Medications Generic Name Dose Route Start Last Admin Trade Name Freq PRN Reason Stop Dose Admin Hydromorphone HCl 0.5 mg 07/08/22 01:48 07/08/22 05:42 Hydromorphone Inj 0.5 Mg/0.5 Ml Syr IV 07/22/22 01:47 0.5 mg Q3H PRN Administration Pain Promethazine HCl 12.5 mg/ 50.5 mls @ 202 mls/hr 07/08/22 01:48 07/08/22 12:18 Sodium Chloride IV 08/07/22 01:47 Infused Q6H PRN Infusion Nausea And Vomiting Oxycodone HCl 5 - 10 mg 07/07/22 22:49 07/08/22 08:13 Oxycodone Hcl Ir 5 Mg Tab (Immediate Release) PO 07/21/22 22:48 5 mg QID PRN Administration Pain Past Medical History Medical History Cardiac murmur Lipoma REMOVAL LEG-BENIGN MVP (mitral valve prolapse) NO PREMED WITH DENTAL-HAD EKG/ECHO [facility]-PT WAS TOLD "NO NEED FOR CONCERN' Nausea and vomiting after administration of anesthetic agent AND GROGGY Exercise / Class Metabolic Activity II 4-5 Yardwork/Stairs/Walk up hill Past Family History Family History Grandmother (Maternal) Family history of diabetes mellitus Family hx of colon cancer Past Surgical History Surgical History H/O eye surgery PRK BILAT History of section History of tooth extraction WISDOM TEETH Hx of breast implants, bilateral Past Anesthesia History No Hx of Anesthesia Complications and No Family Hx of Anesthesia Complications History of PONV No Hx of PONV and No Hx of Motion Sickness Social History Smoking Status: Never smoker Do You Dip or Chew Tobacco: No Hx Alcohol Use: Yes Alcohol type: other alcohol intake frequency: holidays/special occasions only Hx Substance Use: No substance use type: does not use Physical Exam Vital Signs Last Vital Signs Temp 36.9 C 07/08/22 07:18 Pulse 67 07/08/22 07:18 Resp 16 07/08/22 07:18 BP 110/70 07/08/22 07:18 Pulse Ox 94 07/08/22 07:18 O2 Del Method Room Air 07/08/22 07:18 Testing Laboratory Results 07/08/22 08:17 07/08/22 08:17 Urine Color Yellow 07/07/22 22:00 Urine Appearance Clear (Clear) 07/07/22 22:00 Urine pH 7.0 (4.5-7.5) 07/07/22 22:00 Ur Specific [place] 1.040 (1.000-1.030) H 07/07/22 22:00 Urine Protein Negative (Negative) 07/07/22 22:00 Urine Glucose (UA) Negative (Negative) 07/07/22 22:00 Urine Ketones 1+ (Negative) H 07/07/22 22:00 Urine Nitrite Negative (Negative) 07/07/22 22:00 Ur Leukocyte Esterase Negative (Negative) 07/07/22 22:00 Urine WBC (Auto) 1-5 /hpf (0-5) 07/07/22 22:00 Urine RBC (Auto) 0-4 /hpf (0-4) 07/07/22 22:00 U Hyaline Cast (Auto) 0 /lpf (0-5) 07/07/22 22:00 U Epithel Cells (Auto) 0-5 /lpf (0-5) 07/07/22 22:00 Urine Bacteria (Auto) Negative (Negative) 07/07/22 22:00 07/07/22 19:25 Urine Culture - Preliminary Urine,Clean Catch No growth - Less than 1,000 colonies/mL, Final report to follow. 07/07/22 19:07 POC Ur Test NEG Chest X-Ray Date: 07/07/22 Findings: + NAD thoracic dextroscoliosis
[2022-07-08] MEDS ORDERED: MIDAZOLAM HCL 1 MG/ML 2ML VIAL ONE (14:57)
[2022-07-08] MEDS ORDERED: LIDOCAINE 2% 2 ML VIAL/AMP(20MG/ML) INFIL ONE (14:57)
[2022-07-08] MEDS ORDERED: fentaNYL citrate PF 100 MCG/2 ML VIAL ONE (14:57)
[2022-07-08] MEDS ORDERED: ONDANSETRON INJ 2 MG/ML 2 ML VIAL ONE ×2 (14:57→15:53)
[2022-07-08] MEDS ORDERED: PROPOFOL IV EMULSION 10 MG/ML 20 ML VIAL IV ONE (14:57)
[2022-07-08] MEDS ORDERED: DEXAMETHASONE SOD INJ 4 MG/ML VIAL ONE (14:57)
[2022-07-08] MEDS ORDERED: SCOPOLAMINE 1 MG TDSY TD ONE (15:17)
[2022-07-08] MEDS ORDERED: fentaNYL citrate PF 100 MCG/2 ML VIAL IV PRN (15:22)
[2022-07-08] MEDS ORDERED: NALOXONE HCL 0.4 MG/1 ML VIAL/CARP IV PRN (15:22)
[2022-07-08] MEDS ORDERED: ATROPINE SULFATE 0.1 MG/ML 10ML SYR IV PRN (15:22)
[2022-07-08] MEDS ORDERED: FLUMAZENIL 0.1 MG/1 ML 10 ML VIAL IV PRN (15:22)
[2022-07-08] MEDS ORDERED: ePHEDrine sulfate 50 MG/ML AMP IV PRN (15:22)
[2022-07-08] MEDS ORDERED: ONDANSETRON INJ 2 MG/ML 2 ML VIAL IV PRN (15:22)
[2022-07-08] MEDS ORDERED: SCOPOLAMINE 1 MG TDSY TD SCH (15:30)
[2022-07-08] MEDS: CIPROFLOXACIN / D5W 400 MG/200 ML BAG IV SCH (15:36)
[2022-07-08] MEDS ORDERED: diphenhydrAMINE 50 MG/ML VIAL ONE (15:53)
--- NOTE | 2022-07-08 16:16 | Operative Report ---
PG Post Operative Report Pre & Post Diagnosis Operation Date: 07/08/22 07:00 Pre-Op Diagnosis: Right ureteral calculus. Post-Op Diagnosis: Right ureteral calculus. I identified the patient and participated in the time-out.: Yes Procedure Operation Date: 07/08/22 07:00 Actual Procedures p Cystoscopy, Right Retrograde Pyelogram, Right Ureteroscopy, Laser Lithotripsy, Right Stent Placement(Right) - Mike Jose MD Surgeon Mike Jose MD Customer Operations Manager none Estimated Blood Loss 0 Findings Consistent with Post-Op Diagnosis Specimens none Description of Procedure The patient was identified in the preoperative holding area, appropriate informed consents were reviewed and completed and the patient was transferred to the operative suite. Upon arrival, appropriate antibiotics and anesthesia were administered and the patient was placed in dorsal lithotomy position and prepped and draped in sterile fashion. To be in the case a 22 [place] cystoscope was passed per urethra. Inspection revealed a healthy-appearing urethra and bladder. She has very minimal squamous metaplasia in the trigone but otherwise a very healthy appearing bladder. There is some mounding in the presumed area of the distal right ureter. This is consistent with the stone seen on preoperative imaging. The UO was subsequently cannulated with a sensor wire and a 5 [place] open-ended catheter. The wire advanced to the kidney without difficulty. I then removed the 5 [place] open- ended catheter and advanced a semirigid ureteroscope into the bladder. I used a second wire to help advance the scope into the ureter as this area was quite tight. Approximately 2 cm above the UO I encountered a large yellow appearing calculus which was not impacted into the wall. I used a 365 m laser fiber to fragment the stone into many small pieces which I subsequently was able to irrigate out of the ureter. I collected many of these pieces and passed them off the table for chemical analysis. I then advanced my scope maximally and I saw no other stones within the ureter. She did have moderate hydronephrosis but otherwise a very healthy appearing ureter. I concluded my case by placing a 6 [place] by 24 cm double-J stent and leaving a string attached to it. She was reversed of anesthesia and taken to the recovery room in stable condition. There were no complications. I attest to the content of the Intraoperative Record and any orders documented therein. Any exceptions are noted below.
--- NOTE | 2022-07-08 16:33 | Fluoroscopy Report ---
FL KUB CLINICAL HISTORY: RT COMPARISON STUDY: CT of the abdomen and pelvis July 07, 2022. FLUOROSCOPY TIME: 4 seconds. Ka, r: 0.56 mGy FLUOROSCOPIC IMAGES: 4 FINDINGS: Fluoroscopy was provided during right retrograde pyelogram and right ureteral stent placeme nt. Proximal aspect of the stent projects over the right renal pelvis. IMPRESSION: Fluoroscopy provided during right retrograde pyelogram and right ureteral stent insertio n. ACT 112: Negative or not required by law. Electronically signed by: Alfred Nesbitt M.D. 07/08/2022 4:32 PM
--- NOTE | 2022-07-08 16:38 | Anesthesiology Progress Note ---
Date of Service July 08, 2022 Anesthesia Post Procedure Vital Signs Vital Signs: Temp Pulse Pulse Resp BP BP Pulse Ox 07/08/22 15:11 37.2 C 79 18 123/77 97 07/08/22 07:18 36.9 C 67 16 110/70 94 07/08/22 02:45 36.8 C 68 14 138/81 100 07/08/22 02:31 07/08/22 02:23 80 16 133/79 07/08/22 02:20 56 L 13 07/08/22 02:10 58 L 13 07/08/22 02:00 59 L 13 07/08/22 01:50 60 14 07/08/22 01:40 68 20 07/08/22 01:30 67 14 07/08/22 01:20 58 L 17 07/08/22 01:10 63 15 07/08/22 01:00 58 L 14 07/08/22 00:50 55 L 12 07/08/22 00:41 78 21 07/08/22 00:30 70 20 111/72 96 07/08/22 00:20 61 16 97 07/08/22 00:10 90 15 99 07/08/22 00:00 76 15 111/73 96 07/07/22 23:50 63 13 96 07/07/22 23:40 62 16 95 07/07/22 23:30 68 15 117/81 96 07/07/22 23:20 65 12 94 07/07/22 23:10 73 18 97 07/07/22 23:00 77 14 123/83 99 07/07/22 22:51 74 14 115/78 96 07/07/22 22:50 96 07/07/22 22:40 95 07/07/22 22:38 96 07/07/22 21:50 94 H 17 07/07/22 21:40 66 13 98 07/07/22 21:30 67 15 104/62 99 07/07/22 21:27 75 16 130/81 95 07/07/22 21:20 66 14 96 07/07/22 21:15 78 14 07/07/22 20:50 69 16 98 07/07/22 20:40 65 17 98 07/07/22 20:30 66 17 98 07/07/22 20:20 63 14 99 07/07/22 20:10 69 16 96 07/07/22 20:00 65 16 99 07/07/22 19:52 67 19 120/86 07/07/22 19:50 65 18 120/86 07/07/22 19:30 64 24 07/07/22 19:27 63 16 07/07/22 19:07 64 17 100 07/07/22 19:29 63 07/07/22 19:03 36.9 C 63 18 125/89 100 O2 Del Method 07/08/22 15:11 Room Air 07/08/22 07:18 Room Air 07/08/22 02:45 Room Air 07/08/22 02:31 Room Air 07/08/22 02:23 07/08/22 02:20 07/08/22 02:10 07/08/22 02:00 07/08/22 01:50 07/08/22 01:40 07/08/22 01:30 07/08/22 01:20 07/08/22 01:10 07/08/22 01:00 07/08/22 00:50 07/08/22 00:41 07/08/22 00:30 07/08/22 00:20 07/08/22 00:10 07/08/22 00:00 07/07/22 23:50 07/07/22 23:40 07/07/22 23:30 07/07/22 23:20 07/07/22 23:10 07/07/22 23:00 07/07/22 22:51 07/07/22 22:50 07/07/22 22:40 07/07/22 22:38 07/07/22 21:50 07/07/22 21:40 07/07/22 21:30 07/07/22 21:27 07/07/22 21:20 07/07/22 21:15 07/07/22 20:50 07/07/22 20:40 07/07/22 20:30 07/07/22 20:20 07/07/22 20:10 07/07/22 20:00 07/07/22 19:52 07/07/22 19:50 07/07/22 19:30 07/07/22 19:27 07/07/22 19:07 Room Air 07/07/22 19:29 07/07/22 19:03 Room Air Pain Intensity Right Abdomen: Pain Intensity: 6 Transfer of Care Handoff Completed per policy Notes Mental Status: alert / awake / arousable Patient Amnestic to Procedure: Yes Nausea / Vomiting: adequately controlled Pain: adequately controlled Airway Patency, RR, SpO2: stable & adequate BP & HR: stable & adequate Hydration State: stable & adequate Anesthetic Complications: no major complications apparent
[2022-07-08] MEDS: CHECK SCOPOLAMINE PATCH PLACEMENT SCH ×2 (17:27→23:57)
[2022-07-08] MEDS ORDERED: KETOROLAC TROMETHAMINE 15 MG/ML VIAL IV ONE (18:05)
[2022-07-08] MEDS: LACTATED RINGER'S 1,000 ML IV SCH (20:04)
[2022-07-08] MEDS ORDERED: TAMSULOSIN HCL 0.4 MG CAP PO SCH (21:00)
[2022-07-09] MEDS: LACTATED RINGER'S 1,000 ML IV SCH ×2 (02:15→08:58)
[2022-07-09] MEDS: CIPROFLOXACIN / D5W 400 MG/200 ML BAG IV SCH (07:10)
[2022-07-09] MEDS: CHECK SCOPOLAMINE PATCH PLACEMENT SCH (07:44)
[2022-07-09 07:55] LABS: Hematocrit (blood only) 35.6 % (37.0-47.0); Hemoglobin 12.1 g/dl (12.0-16.0); Mean Corpuscular Hemoglobin 30.5 pg (25.0-34.0); Mean Corpuscular Volume 89.7 fL (80.0-100.0); Mean Platelet Volume 9.9 fL (9.4-12.4); Platelet Count 257 K/uL (130-400); RDW Coefficient of Variation 12.6 % (11.5-14.5); RDW Standard Deviation 41.5 fL (36.4-46.3); Red Blood Count 3.97 M/uL (4.20-5.40); White Blood Count 9.51 K/ul (4.8-10.8)
[2022-07-09 08:31] LABS: BUN Creatinine Ratio 12.8 (10-20); Calcium 8.3 mg/dl (8.6-10.3); Creatinine Clr Calc Pharmacy 89.6 ml/min; Est GFR (Non-African American) 80.3 ml/min; Magnesium 1.9 mg/dl (1.7-2.4); Phosphorus 3.4 mg/dl (2.5-4.9); Potassium 3.9 mmol/L (3.5-5.1)
--- NOTE | 2022-07-09 09:54 | Urology Progress Note ---
Date of Service July 09, 2022 Assessment & Plan (1) Right ureteral calculus: Plan: She is recovering appropriately from ureteroscopy and laser lithotripsy. I recommended that she maintain the stent for another 1 to 2 days if tolerated as this will let inflammation subside. She can use Tylenol or ibuprofen as needed for discomfort. Should be appropriate for discharge home today. Urology will arrange outpatient follow-up. Admission and Anticipated Discharge Date Admission Date: July 08, 2022 Subjective Feeling well this morning Tolerating stent without too much discomfort Denies any fevers or chills Tolerating a diet Review of Systems Review of Systems: 12 point review of systems negative except for otherwise indicated. Physical Exam Physical Exam: Well-appearing, NAD Respiratory: Breathing comfortably on room air Results & Data Vital Signs (Past 12 Hours) Vital Signs Temp Pulse Resp BP Pulse Ox O2 Del Method 07/09/22 07:25 36.6 C 66 16 100/68 98 Room Air 07/09/22 04:01 36.8 C 65 16 99/59 L 96 Room Air 07/09/22 00:02 36.9 C 67 16 109/70 96 Room Air PG Care Time/CCT Total # of Minutes Spent Total Time Spent with Patient: Total time spent is greater than 50% in coordination of care (as documented) at patient's floor/unit and/or counseling patient: Coding Level of Care Code 41291 SUB INP/OBS CARE 03/23MIN Diagnoses Right ureteral calculus N20.1
--- NOTE | 2022-07-09 11:45 | Discharge Summary ---
Date of Service July 09, 2022 Admission HPI Per Admitting Provider History obtained from patient and records. Medical history significant for mitral valve prolapse, gestational DM, cervical dysplasia. Patient seen at [facility] 10 days ago right lower quadrant pain. Normal appendix and nonobstructing right renal calculus noted on imaging. Right ovarian cyst noted. Pain attributed to right ovarian cyst. Subsequent improved with outpatient oxycodone as needed prescription. Last week, patient seen at the [facility] ER for achy right lower quadrant pain somewhat different from ovarian cyst pain. Pain crossing over. Patient denies hematuria, fever, chills. No chest pain, no SOB. Normal uterus endometrium, few right ovarian cysts with dominant simple cyst measuring 3.2 cm on pelvic ultrasound. Patient abdominal pain attributed to ovarian cyst. Patient returned to ER last night for worsening RLQ pain nausea, vomiting. No chest pain, no SOB No hematuria, fever, chills. 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 [place] palpebral conjunctivae. NECK : Supple, no tenderness CHEST : CTA, no tenderness HEART : RRR, no obvious murmurs ABDOMEN: Soft, minimal right lower quadrant tenderness to palp. - much improved EXTREMITIES : No LE swelling, moves extremities NEUROLOGIC : awake, alert, oriented, no facial asymmetry, moves extremities SKIN: warm, dry Discharge Data Allergies Allergy/AdvReac Type Severity Reaction Status Date / Time No Known Allergies Allergy Verified 07/07/22 19:35 Consultations 07/07/22 22:30 ED Decision to Admit Stat 07/07/22 22:50 Consult Urology Stat Procedures Performed Operation Date: 07/08/22 07:00 Actual Procedures p Cystoscopy, Right Retrograde Pyelogram, Right Ureteroscopy, Laser Lithotripsy, Right Stent Placement(Right) - Mike Jose MD Ordered Studies 07/07/22 19:19 CT Abd and Pelvis [CT abd pelvis IV con only] Stat ABDOMEN: Liver: Unremarkable. No mass. Gallbladder and bile ducts: Unremarkable. No calcified stones. No ductal dilation. Pancreas: Unremarkable. No mass. No ductal dilation. Spleen: Unremarkable. No splenomegaly. Adrenals: Unremarkable. No mass. Kidneys and ureters: A 7.6 mm distal right ureteral stone is noted in the right UVJ with proximal mild to moderate right hydroureteronephrosis. There is minimal perinephric and periureteral fat stranding identified. The left kidney is unremarkable without obstructive nephrolithiasis or hydronephrosis. Right kidney demonstrates somewhat diminished relative enhancement compared to the left kidney. Stomach and bowel: Unremarkable. No obstruction. No mucosal thickening. PELVIS: Appendix: A normal caliber appendix is noted extending inferiorly from the cecum in the anterior pelvis. Bladder: Unremarkable. No mass. Reproductive: There are follicular changes in the right ovary/adnexa measuring 2.1 x 2.2 and 2.5 x 2.3 cm. The uterus is unremarkable. The left adnexa is unremarkable. ABDOMEN and PELVIS: Intraperitoneal space: Unremarkable. No free air. No significant fluid collection. Bones/joints: Posterior pedicle screws and laminar clips are noted at L5 level, stable from the previous examination. There is a grade 1 anterolisthesis of L5 on S1. No acute osseous abnormality. No dislocation. Soft tissues: Unremarkable. Vasculature: Unremarkable. No abdominal aortic aneurysm. Lymph nodes: Unremarkable. No enlarged lymph nodes. IMPRESSION: A 7.6 mm distal right ureteral stone is noted in the right UVJ with proximal mild to moderate right hydroureteronephrosis. There is minimal perinephric and periureteral fat stranding identified. 07/08/22 15:30 FL KUB Routine Hospital Course (1) ARF (acute renal failure): R ureteral calculus KARISHMA, Hydronephrosis Renal colic Secondary to obstructive uropathy/urolithiasis No sepsis Analgesia IVF provided and Cr back to normal (ARF resolved) Urology consult Re: Obstructive uropathy flomax Pt s/p p Cystoscopy, Right Retrograde Pyelogram, Right Ureteroscopy, Laser Lithotripsy, Right Stent Placement(Right) - Mike Jose MD 07/09 Pt is feeling well and pain is resolved. Reports some hematuria. Per urology - recommended that she maintains the stent for another 1 to 2 days if tolerated as this will let inflammation subside. She can use Tylenol or ibuprofen as needed for discomfort. Plan for follow up on Monday for stent removal. PMH/ Chronic conditions hx mitral valve prolapse gestational DM cervical dysplasia DVT prophylaxis. SCDs Full code Total Time Total Time Spent Total Time Spent (In Minutes): 40 Discharge Plan Discharge Items Patient Disposition: Home - Self-Care Reason For Visit: OBS UROPATHY Discharge Diagnosis: Right ureteral stone KARISHMA Activity: Per Instructions section Non-emergency contact: Primary Care Provider and Urologist Call non-emergency contact if: you have any medication questions and your symptoms worsen Follow-up/Referrals: Delilah Snowden MD [Primary Care Provider] - Diet: Regular Addtl Attending Provider Instructions: Follow-up with primary care physician, and urologist. Follow-up with urology on Monday, as discussed. Follow-up with primary care physician within 1 week. For pain, you can take Tylenol 1000 mg 3 times a day, up to 3000 mg/day. If pain not relieved by Tylenol, you can use ibuprofen, and for more severe pain you can use oxycodone which was sent to you from the emergency room. Make sure to stay well-hydrated. Pending Studies at Discharge: Yes Studies:: renal stone analysis Stand-Alone Forms: [facility], Pain - Opioid Pain Management, Smoking Cessation Medications and DC Order Prescriptions: New tamsulosin [Flomax] 0.4 mg capsule 0.4 mg PO DAILY Qty: 10 0RF ondansetron 4 mg tablet,disintegrating 4 mg PO Q8H PRN (Reason: nausea and vomiting) 5 Days Qty: 15 0RF oxycodone 5 mg tablet 5 mg PO Q6H PRN (Reason: pain) Qty: 14 0RF Continued acetaminophen [Tylenol Extra Strength] 500 mg Tablet 1,000 mg PO DIRECTED PRN (Reason: Pain) doxycycline hyclate 50 mg capsule 50 mg PO DAILY Patient Comments: she took this morning but threw it back up. tretinoin 0.05 % gel 1 applic TOPICAL WK Rx Instructions: MONDAYS ibuprofen 800 mg tablet 800 mg PO TID PRN (Reason: Pain) Discontinued ondansetron HCl 4 mg tablet 4 mg PO Q8H PRN (Reason: nausea and vomiting) Qty: 20 0RF Discharge Orders: Discharge Order (Routine); Ordered 07/09/22 Ordered By: Gareth Garcia Admission Data Admit Date/Time: 07/08/22 01:46 Attending Provider: Gareth Garcia Admit Provider: Mika Daugherty Primary Care Provider: Delilah Snowden Other Providers: Mika Daugherty ; Uriel Rosenberg Other Interventions: Discharge Summary Assessment (RN) Last Done: 07/09/22 12:05
== END 2022-07-09 12:31 | disposition home or self-care (01) | DRG 661 ==
LOC: ED 18:46 → 3N 07-08 01:46